=== PATIENT | male | born 1935 | race Caucasian/White ===

== ENCOUNTER 2017-04-27 13:18 | Emergency (ER) | payer MEDICARE, MEDICAID ==
[~2017-04-27] VITALS: Ht 170.2 cm; Wt 70.0 kg
[~2017-04-27 13:18] MED LIST: ACET-2178 PO; ASPI-986 PO; BUDE6HFA INH; CEFT1FRO5 IV; CHOL500010 PO; DOCU-138 PO; FINA5TAB11 PO; LACT10SO6 PO; LIP40 PO; PROT40 PO; TRAM50TA3 PO
[2017-04-27] MEDS ORDERED: SODIUM CHLORIDE 0.9% 500 ML IV ONE (14:38)
[2017-04-27] MEDS ORDERED: LORAZEPAM 2MG/ML CPJ IV STA (14:38)
[2017-04-27 15:24] LABS: BASOPHILS % 0.4 % (0.0-2.0); EOSINOPHILS % 1.4 % (0.0-5.0); HEMATOCRIT. 37.2 % (42.0-52.0); HEMOGLOBIN. 12.1 g/dL (14.0-18.0); LYMPHOCYTES % 23.5 % (20.0-50.0); MEAN CORPUSCULAR HEMOGLOBIN 27.5 pg (28.0-32.0); MEAN CORPUSCULAR VOLUME 84.5 fL (80.0-94.0); MEAN PLATELET VOLUME 8.5 fl (7.4-10.4); MONOCYTES % 8.3 % (2.0-8.0); NEUTROPHILS % 66.4 % (40.0-76.0); PLATELET 174 x1000/uL (130-400)
[2017-04-27 15:27] LABS: PROTHROMBIN TIME 10.7 sec
[2017-04-27 15:36] LABS: CARBON DIOXIDE 25 mEq/L (21-32); CHLORIDE 107 mEq/L (98-107); CREATINE KINASE 92 IU/L (39-308); ETHANOL BLOOD < 10 mg/dL; TROPONIN I < 0.02 ng/mL (0.00-0.04)
[2017-04-27 16:23] LABS: AMMONIA 17 uMol/L (<32)
[2017-04-27 19:10] VITALS: BP 120/68
[2017-04-29] MEDS ORDERED: LISI-604 PO (17:50)
== END 2017-04-27 19:11 ==
LOC: ER 13:33
DX: G93.40 Encephalopathy, unspecified (principal); F03.90 Unspecified dementia, unspecified severity, without behavioral disturbance, psychotic disturbance, mood disturbance, and anxiety; J44.9 Chronic obstructive pulmonary disease, unspecified; E78.00 Pure hypercholesterolemia, unspecified; R53.1 Weakness; Z79.82 Long term (current) use of aspirin
CPT/HCPCS: 36415; 70450; 71010; 80053; 82140; 82550; 83880; 84443; 84484; 85025; 85610; 93005; 96361; 96374; 99285; G0482; J2060; J7040; 80305; 81003

== ENCOUNTER 2018-11-02 22:14 | Emergency (ER) | payer MEDICARE, MEDICAID ==
[~2018-11-02] VITALS: Ht 165.1 cm; Wt 69.0 kg
[~2018-11-02 22:14] MED LIST changes: -ACET-2178 PO; -ASPI-986 PO; -BUDE6HFA INH; -CEFT1FRO5 IV; -CHOL500010 PO; -DOCU-138 PO; -FINA5TAB11 PO; -LACT10SO6 PO; -LIP40 PO; -PROT40 PO; +SULF1TAB48 PO; -TRAM50TA3 PO
[2018-11-02] MEDS ORDERED: SODIUM CHLORIDE 0.9% 1,000 ML IV ONE (22:49)
[2018-11-02 23:19] LABS: BASOPHILS % 0.3 % (0.0-2.0); EOSINOPHILS % 2.6 % (0.0-5.0); HEMATOCRIT. 34.6 % (42.0-52.0); HEMOGLOBIN. 11.2 g/dL (14.0-18.0); LYMPHOCYTES % 22.7 % (20.0-50.0); MEAN CORPUSCULAR HEMOGLOBIN 28.3 pg (28.0-32.0); MEAN CORPUSCULAR VOLUME 87.3 fL (80.0-94.0); MONOCYTES % 10.7 % (2.0-8.0); NEUTROPHILS % 63.7 % (40.0-76.0); PLATELET 215 x1000/uL (130-400); RED BLOOD CELL COUNT 3.96 mill/uL (4.7-6.1)
[2018-11-02 23:25] LABS: CHLORIDE 108 mEq/L (98-107)
[2018-11-03 01:24] LABS: CLARITY URINE CLOUDY (CLEAR); COLOR URINE YELLOW (YELLOW); KETONES URINE NEGATIVE (NEGATIVE); PROTEIN URINE NEGATIVE (NEGATIVE); SPECIFIC GRAVITY URINE 1.013 (1.005-1.030)
[2018-11-03 01:25] LABS: LEUKOCYTE ESTERASE URINE 3+ (NEGATIVE); NITRITE URINE POSITIVE (NEGATIVE); OCCULT BLOOD URINE TRACE (NEGATIVE); UROBILINOGEN URINE 0.2 E.U./dL (0.2-1.0)
[2018-11-03] MEDS ORDERED: CEFTRIAXONE 1 G PREMIX 50 ML IV ONE (02:00)
[2018-11-03 05:33] VITALS: BP 126/78
== END 2018-11-03 05:31 | disposition home or self-care (01) ==
LOC: ER 22:14 → EDUNIT# 22:14 → ER 11-03 05:31
DX: S01.01XA Laceration without foreign body of scalp, initial encounter (principal); N39.0 Urinary tract infection, site not specified; I10 Essential (primary) hypertension; D64.9 Anemia, unspecified; N40.0 Benign prostatic hyperplasia without lower urinary tract symptoms; W01.0XXA Fall on same level from slipping, tripping and stumbling without subsequent striking against object, initial encounter; Y93.E1 Activity, personal bathing and showering; Y92.89 Other specified places as the place of occurrence of the external cause; Y99.8 Other external cause status
CPT/HCPCS: 36415; 70450; 71045; 80053; 81003; 84484; 85025; 87077; 87086; 87186; 93005; 96365; 99284; J0696; J7030

== ENCOUNTER 2018-11-03 13:55 | Inpatient (IN) | payer MEDICARE, MEDICAID ==
[~2018-11-03] VITALS: Ht 167.6 cm; Wt 67.6 kg
[2018-11-03 12:05] VITALS: BP 105/57
[2018-11-03 14:00] VITALS: BP 100/57
[2018-11-03 16:26] VITALS: BP 116/64
[2018-11-03] MEDS ORDERED: DEXT 5%/0.45% NACL 1000ML 1,000 ML IV SCH (18:00)
[2018-11-03] MEDS: DEXT 5%/0.45% NACL 1000ML 1,000 ML IV SCH (19:34)
[2018-11-03 20:00] VITALS: BP 127/77
[2018-11-03 20:50] LABS: CLARITY URINE CLOUDY (CLEAR); COLOR URINE YELLOW (YELLOW); KETONES URINE NEGATIVE (NEGATIVE); LEUKOCYTE ESTERASE URINE 3+ (NEGATIVE); NITRITE URINE POSITIVE (NEGATIVE); OCCULT BLOOD URINE TRACE (NEGATIVE); PH URINE 6.5 (4.5-8.0); PROTEIN URINE NEGATIVE (NEGATIVE); UROBILINOGEN URINE 0.2 E.U./dL (0.2-1.0)
[2018-11-03] MEDS ORDERED: MAGNESIUM/ALUMINUM HYDROXIDE/SIMETHICONE 30ML UDC PO PRN (22:00)
[2018-11-03] MEDS ORDERED: IPRATROPIUM/ALBUTEROL 0.5-3(2.5)MG/3ML NEB INH PRN (22:00)
[2018-11-03] MEDS ORDERED: GUAIFENESIN 200MG/10ML SUGAR FREE UDC PO PRN (22:00)
[2018-11-03] MEDS ORDERED: ACETAMINOPHEN 325MG TABLET PO PRN (22:00)
[2018-11-03] MEDS ORDERED: CLONIDINE 0.1MG TABLET PO PRN (22:00)
[2018-11-03] MEDS ORDERED: ONDANSETRON HCL 4MG/2ML INJ IV PRN (22:00)
[2018-11-03 22:37] LABS: BASOPHILS % 0.4 % (0.0-2.0); EOSINOPHILS % 3.1 % (0.0-5.0); HEMATOCRIT. 34.8 % (42.0-52.0); HEMOGLOBIN. 11.3 g/dL (14.0-18.0); MEAN CORPUSCULAR VOLUME 86.3 fL (80.0-94.0); MEAN PLATELET VOLUME 7.9 fl (7.4-10.4); MONOCYTES % 11.6 % (2.0-8.0); NEUTROPHILS % 62.9 % (40.0-76.0); PLATELET 221 x1000/uL (130-400); RED BLOOD CELL COUNT 4.03 mill/uL (4.7-6.1); RED CELL DISTRIBUTION WIDTH 16.2 % (11.6-14.6)
[2018-11-03] MEDS: SODIUM CHLORIDE 0.9% INJ 3ML FLUSH IVF SCH (22:47)
[2018-11-03 22:48] LABS: CHLORIDE 109 mEq/L (98-107)
[2018-11-03] MEDS: LORAZEPAM 2MG/ML CPJ IV PRN (22:53)
[2018-11-03] MEDS: DIPHENHYDRAMINE 50MG/ML VIAL IV PRN (22:53)
[2018-11-04] VITALS: BP 133/67
[2018-11-04 04:00] VITALS: BP 106/65
[2018-11-04] MEDS: SODIUM CHLORIDE 0.9% INJ 3ML FLUSH IVF SCH ×3 (05:09→21:59)
[2018-11-04] MEDS ORDERED: LEVOFLOXACIN 500MG PREMIX 100 ML IV NR ×2 (06:00)
[2018-11-04 07:18] LABS: CHLORIDE 108 mEq/L (98-107)
[2018-11-04 07:20] LABS: BASOPHILS % 0.6 % (0.0-2.0); EOSINOPHILS % 3.2 % (0.0-5.0); HEMATOCRIT. 35.8 % (42.0-52.0); HEMOGLOBIN. 11.7 g/dL (14.0-18.0); LYMPHOCYTES % 22.9 % (20.0-50.0); MEAN CORPUSCULAR HEMOGLOBIN 28.2 pg (28.0-32.0); MEAN CORPUSCULAR VOLUME 86.7 fL (80.0-94.0); NEUTROPHILS % 62.3 % (40.0-76.0); PLATELET 222 x1000/uL (130-400); RED BLOOD CELL COUNT 4.13 mill/uL (4.7-6.1); RED CELL DISTRIBUTION WIDTH 15.9 % (11.6-14.6)
[2018-11-04] MEDS: ASPIRIN 81MG EC TABLET PO SCH (09:20)
[2018-11-04] MEDS: LISINOPRIL 2.5MG TABLET PO SCH (09:20)
[2018-11-04] MEDS: FINASTERIDE 5MG TABLET PO SCH (09:20)
[2018-11-04] MEDS: MEMANTINE HCL 5MG TABLET PO SCH (09:20)
[2018-11-04] MEDS: ENOXAPARIN 40MG/0.4ML SYR SUBCUT SCH (09:21)
[2018-11-04] MEDS: IPRATROPIUM/ALBUTEROL 0.5-3(2.5)MG/3ML NEB HHN SCH ×4 (12:03→23:49)
[2018-11-04] MEDS: DEXT 5%/0.45% NACL 1000ML 1,000 ML IV SCH (16:00)
[2018-11-04 20:00] VITALS: BP 98/50
[2018-11-04] MEDS: LORAZEPAM 2MG/ML CPJ IV PRN (23:12)
[2018-11-05] VITALS: BP 134/77
[2018-11-05] MEDS: DIPHENHYDRAMINE 50MG/ML VIAL IV PRN (02:22)
[2018-11-05 04:00] VITALS: BP 129/70
[2018-11-05] MEDS: IPRATROPIUM/ALBUTEROL 0.5-3(2.5)MG/3ML NEB HHN SCH ×5 (04:01→21:32)
[2018-11-05] MEDS: LEVOFLOXACIN 250MG PREMIX 50 ML IV SCH (05:09)
[2018-11-05] MEDS: SODIUM CHLORIDE 0.9% INJ 3ML FLUSH IVF SCH ×2 (05:10→14:50)
[2018-11-05 08:00] VITALS: BP 120/68
[2018-11-05] MEDS: MEMANTINE HCL 5MG TABLET PO SCH (08:38)
[2018-11-05] MEDS: LISINOPRIL 2.5MG TABLET PO SCH (08:38)
[2018-11-05] MEDS: ASPIRIN 81MG EC TABLET PO SCH (08:38)
[2018-11-05] MEDS: FINASTERIDE 5MG TABLET PO SCH (08:38)
[2018-11-05] MEDS: ENOXAPARIN 40MG/0.4ML SYR SUBCUT SCH (08:40)
[2018-11-05 12:00] VITALS: BP 128/98
[2018-11-05] MEDS: DEXT 5%/0.45% NACL 1000ML 1,000 ML IV SCH (12:00)
[2018-11-05 16:00] VITALS: BP 108/65
[2018-11-05 20:00] VITALS: BP 128/78
[2018-11-06] VITALS: BP 118/73
[2018-11-06] MEDS: IPRATROPIUM/ALBUTEROL 0.5-3(2.5)MG/3ML NEB HHN SCH ×5 (01:05→16:43)
[2018-11-06] MEDS: DIPHENHYDRAMINE 50MG/ML VIAL IV PRN (03:24)
[2018-11-06 04:00] VITALS: BP 146/78
[2018-11-06] MEDS: SODIUM CHLORIDE 0.9% INJ 3ML FLUSH IVF SCH ×2 (05:40→14:35)
[2018-11-06] MEDS: LEVOFLOXACIN 250MG PREMIX 50 ML IV SCH (05:40)
[2018-11-06] MEDS: LORAZEPAM 2MG/ML CPJ IV PRN (05:40)
[2018-11-06 08:00] VITALS: BP 122/76
[2018-11-06] MEDS: DEXT 5%/0.45% NACL 1000ML 1,000 ML IV SCH (08:00)
[2018-11-06] MEDS ORDERED: CEFEPIME 1,000 MG in DEXTROSE 5% WATER 50 ML IV SCH (11:00)
[2018-11-06] MEDS: ASPIRIN 81MG EC TABLET PO SCH (11:08)
[2018-11-06] MEDS: LISINOPRIL 2.5MG TABLET PO SCH (11:08)
[2018-11-06] MEDS: FINASTERIDE 5MG TABLET PO SCH (11:08)
[2018-11-06] MEDS: MEMANTINE HCL 5MG TABLET PO SCH (11:08)
[2018-11-06] MEDS: ENOXAPARIN 40MG/0.4ML SYR SUBCUT SCH (11:09)
[2018-11-06 12:00] VITALS: BP 104/64
[2018-11-06 16:00] VITALS: BP 122/75
[2018-11-06 17:05] VITALS: BP 122/75
[2018-11-06] MEDS ORDERED: NITROFURANTOIN 100MG M/M CAPSULE PO SCH (21:00)
== END 2018-11-06 20:00 | DRG 73 ==
LOC: 6EST 13:55
PROVIDERS: ADMIT Internal Medicine; ATTEND Internal Medicine
DX: G90.8 Other disorders of autonomic nervous system (principal); E43 Unspecified severe protein-calorie malnutrition; N39.0 Urinary tract infection, site not specified; S01.01XA Laceration without foreign body of scalp, initial encounter; J44.9 Chronic obstructive pulmonary disease, unspecified; E78.00 Pure hypercholesterolemia, unspecified; F03.90 Unspecified dementia, unspecified severity, without behavioral disturbance, psychotic disturbance, mood disturbance, and anxiety; I10 Essential (primary) hypertension; N40.0 Benign prostatic hyperplasia without lower urinary tract symptoms; W20.8XXA Other cause of strike by thrown, projected or falling object, initial encounter; Y93.89 Activity, other specified; Y92.89 Other specified places as the place of occurrence of the external cause; Y99.8 Other external cause status
CPT/HCPCS: 36415; 71045; 84484; 87077; 87186; 93005; 94640; 96365; 99284; J0692; J0696; J1200; J1650; J1956; J2060; J3490; J7030; J7050; J7060; J7620

== ENCOUNTER 2019-06-17 17:50 | Inpatient (IN) | payer MEDICARE, MEDICAID ==
[~2019-06-17] VITALS: Ht 195.6 cm; Wt 73.5 kg
[2019-06-17] MEDS ORDERED: SODIUM CHLORIDE 0.9% 1000ML BAG (SEPSIS BOLUS) IV ONE (18:30)
[2019-06-17] MEDS ORDERED: PIPERACILLIN/TAZ 3.375G PREMIX 50 ML IV ONE (18:30)
[2019-06-17 18:56] LABS: CHLORIDE 106 mEq/L (98-107)
[2019-06-17 18:57] LABS: INR 1.1
[2019-06-17 19:01] LABS: HEMATOCRIT. 35.7 % (42.0-52.0); HEMOGLOBIN. 11.6 g/dL (14.0-18.0); MEAN CORPUSCULAR HEMOGLOBIN 27.8 pg (28.0-32.0); MEAN CORPUSCULAR VOLUME 85.4 fL (80.0-94.0); MEAN PLATELET VOLUME 8.4 fl (7.4-10.4); PLATELET 210 x1000/uL (130-400); RED BLOOD CELL COUNT 4.18 mill/uL (4.7-6.1)
[2019-06-17 19:23] LABS: PLATELET ESTIMATE NORMAL
[2019-06-17] MEDS ORDERED: SODIUM CHLORIDE 0.9% 1,000 ML IV ONE (19:54)
[2019-06-17 20:12] LABS: CLARITY URINE CLOUDY (CLEAR); COLOR URINE YELLOW (YELLOW); KETONES URINE NEGATIVE (NEGATIVE); LEUKOCYTE ESTERASE URINE 3+ (NEGATIVE); NITRITE URINE POSITIVE (NEGATIVE); OCCULT BLOOD URINE TRACE (NEGATIVE); PROTEIN URINE NEGATIVE (NEGATIVE); SPECIFIC GRAVITY URINE 1.011 (1.005-1.030); UROBILINOGEN URINE 0.2 E.U./dL (0.2-1.0)
[2019-06-17] MEDS ORDERED: ACETAMINOPHEN 325MG TABLET PO PRN (20:30)
[2019-06-17] MEDS ORDERED: IPRATROPIUM/ALBUTEROL 0.5-3(2.5)MG/3ML NEB INH PRN (20:30)
[2019-06-17] MEDS ORDERED: ONDANSETRON HCL 4MG/2ML INJ IV PRN (20:30)
[2019-06-17] MEDS ORDERED: PIPERACILLIN/TAZ 3.375G PREMIX 50 ML IV SCH (20:30)
[2019-06-17] MEDS ORDERED: ENOXAPARIN 40MG/0.4ML SYR SUBCUT SCH (20:30)
[2019-06-17] MEDS ORDERED: DEXT 5%/0.45% NACL 1000ML 1,000 ML IV SCH (22:47)
[2019-06-18 05:15] VITALS: BP 100/52
[2019-06-18] MEDS ORDERED: PIPERACILLIN/TAZ 3.375G PREMIX 50 ML IV NR (05:15)
[2019-06-18] MEDS ORDERED: PIPERACILLIN/TAZ 3.375G PREMIX 50 ML IV SCH (05:15)
[2019-06-18 06:00] VITALS: BP 100/52
[2019-06-18] MEDS ORDERED: VANCOMYCIN 1 G PREMIX 200 ML IV NR ×2 (06:00→09:00)
[2019-06-18 08:00] VITALS: BP 110/52
[2019-06-18] MEDS: PIPERACILLIN/TAZOBACTAM 3.375 G in DEXT 5% WATER 100 ML IV SCH ×3 (08:51→21:15)
[2019-06-18] MEDS ORDERED: IPRATROPIUM/ALBUTEROL 0.5-3(2.5)MG/3ML NEB HHN PRN (09:15)
[2019-06-18] MEDS: ENOXAPARIN 40MG/0.4ML SYR SUBCUT SCH (09:32)
[2019-06-18 12:00] VITALS: BP 110/54
[2019-06-18 13:12] LABS: BASOPHILS % 0.2 % (0.0-2.0); EOSINOPHILS % 0.6 % (0.0-5.0); HEMATOCRIT. 34.7 % (42.0-52.0); HEMOGLOBIN. 11.2 g/dL (14.0-18.0); LYMPHOCYTES % 9.4 % (20.0-50.0); MEAN CORPUSCULAR HEMOGLOBIN 27.6 pg (28.0-32.0); MEAN CORPUSCULAR VOLUME 85.7 fL (80.0-94.0); MEAN PLATELET VOLUME 8.2 fl (7.4-10.4); MONOCYTES % 5.2 % (2.0-8.0); NEUTROPHILS % 84.6 % (40.0-76.0); PLATELET 173 x1000/uL (130-400); RED BLOOD CELL COUNT 4.05 mill/uL (4.7-6.1); RED CELL DISTRIBUTION WIDTH 16.2 % (11.6-14.6)
[2019-06-18 13:32] LABS: CHLORIDE 111 mEq/L (98-107)
[2019-06-18] MEDS: FINASTERIDE 5MG TABLET PO SCH (14:17)
[2019-06-18] MEDS: ASPIRIN 81MG TABLET PO SCH (14:17)
[2019-06-18] MEDS: IPRATROPIUM/ALBUTEROL 0.5-3(2.5)MG/3ML NEB HHN SCH ×2 (14:54→20:33)
[2019-06-18 16:00] VITALS: BP 113/59
[2019-06-18] MEDS: DOCUSATE SODIUM 100MG CAPSULE PO SCH (17:00)
[2019-06-18 20:00] VITALS: BP 114/64
[2019-06-18] MEDS: BUDESONIDE 0.5MG/2ML NEB HHN SCH (20:36)
[2019-06-18] MEDS: VANCOMYCIN 750 MG PREMIX 150 ML IV SCH (21:15)
[2019-06-18] MEDS: DEXT 5%/0.45% NACL 1000ML 1,000 ML IV SCH (21:16)
[2019-06-18] MEDS: GUAIFENESIN 600MG ER TABLET PO SCH (21:29)
[2019-06-19] VITALS: BP 113/58
[2019-06-19] MEDS ORDERED: VANCOMYCIN 1 G PREMIX 200 ML IV SCH
[2019-06-19] MEDS: IPRATROPIUM/ALBUTEROL 0.5-3(2.5)MG/3ML NEB HHN SCH ×4 (01:35→21:48)
[2019-06-19] MEDS: PIPERACILLIN/TAZOBACTAM 3.375 G in DEXT 5% WATER 100 ML IV SCH ×4 (02:00→20:29)
[2019-06-19 04:00] VITALS: BP 124/59
[2019-06-19 05:48] LABS: BASOPHILS % 0.2 % (0.0-2.0); EOSINOPHILS % 0.9 % (0.0-5.0); HEMATOCRIT. 35.3 % (42.0-52.0); HEMOGLOBIN. 11.8 g/dL (14.0-18.0); LYMPHOCYTES % 11.6 % (20.0-50.0); MEAN CORPUSCULAR HEMOGLOBIN 28.6 pg (28.0-32.0); MEAN CORPUSCULAR VOLUME 85.2 fL (80.0-94.0); MEAN PLATELET VOLUME 8.7 fl (7.4-10.4); MONOCYTES % 7.1 % (2.0-8.0); NEUTROPHILS % 80.2 % (40.0-76.0); PLATELET 203 x1000/uL (130-400); RED BLOOD CELL COUNT 4.14 mill/uL (4.7-6.1); RED CELL DISTRIBUTION WIDTH 16.4 % (11.6-14.6)
[2019-06-19 05:49] LABS: CHLORIDE 109 mEq/L (98-107)
[2019-06-19] MEDS: DEXT 5%/0.45% NACL 1000ML 1,000 ML IV SCH (06:41)
[2019-06-19] MEDS ORDERED: LEVOTHYROXINE SODIUM 88MCG TABLET PO SCH (07:10)
[2019-06-19] MEDS: BUDESONIDE 0.5MG/2ML NEB HHN SCH ×2 (07:42→21:48)
[2019-06-19 08:00] VITALS: BP 110/70
[2019-06-19] MEDS: FINASTERIDE 5MG TABLET PO SCH (08:31)
[2019-06-19] MEDS: ASPIRIN 81MG TABLET PO SCH (08:31)
[2019-06-19] MEDS: GUAIFENESIN 600MG ER TABLET PO SCH ×2 (08:31→21:27)
[2019-06-19] MEDS: DOCUSATE SODIUM 100MG CAPSULE PO SCH ×2 (08:31→16:47)
[2019-06-19] MEDS: ENOXAPARIN 40MG/0.4ML SYR SUBCUT SCH (08:32)
[2019-06-19] MEDS ORDERED: FLUTICASONE/VILANTEROL 200-25 BLST.W.DEV ORI SCH (09:00)
[2019-06-19] MEDS ORDERED: AMIODARONE HCL 200 MG TABLET PO SCH (09:00)
[2019-06-19] MEDS: VANCOMYCIN 750 MG PREMIX 150 ML IV SCH ×2 (09:00→21:26)
[2019-06-19] MEDS ORDERED: TAMSULOSIN HCL 0.4MG SR CAPSULE PO SCH (09:00)
[2019-06-19 12:00] VITALS: BP 120/69
[2019-06-19 16:00] VITALS: BP 142/62
[2019-06-19 20:00] VITALS: BP 148/85
[2019-06-20] VITALS: BP 131/57
[2019-06-20] MEDS: IPRATROPIUM/ALBUTEROL 0.5-3(2.5)MG/3ML NEB HHN SCH ×4 (02:06→20:38)
[2019-06-20 04:00] VITALS: BP 126/69
[2019-06-20] MEDS: PIPERACILLIN/TAZOBACTAM 3.375 G in DEXT 5% WATER 100 ML IV SCH ×4 (04:16→20:04)
[2019-06-20 06:25] LABS: CHLORIDE 109 mEq/L (98-107)
[2019-06-20 06:29] LABS: BASOPHILS % 0.2 % (0.0-2.0); HEMATOCRIT. 36.8 % (42.0-52.0); LYMPHOCYTES % 12.5 % (20.0-50.0); MEAN CORPUSCULAR HEMOGLOBIN 28.1 pg (28.0-32.0); MEAN CORPUSCULAR VOLUME 85.9 fL (80.0-94.0); MEAN PLATELET VOLUME 8.2 fl (7.4-10.4); MONOCYTES % 8.4 % (2.0-8.0); NEUTROPHILS % 77.9 % (40.0-76.0); PLATELET 211 x1000/uL (130-400); RED BLOOD CELL COUNT 4.28 mill/uL (4.7-6.1); RED CELL DISTRIBUTION WIDTH 16.1 % (11.6-14.6)
[2019-06-20 08:17] VITALS: BP 142/64
[2019-06-20] MEDS: VANCOMYCIN 750 MG PREMIX 150 ML IV SCH ×2 (09:35→20:57)
[2019-06-20] MEDS: DOCUSATE SODIUM 100MG CAPSULE PO SCH (09:36)
[2019-06-20] MEDS: FINASTERIDE 5MG TABLET PO SCH (09:36)
[2019-06-20] MEDS: GUAIFENESIN 600MG ER TABLET PO SCH ×3 (09:36→21:00)
[2019-06-20] MEDS: ENOXAPARIN 40MG/0.4ML SYR SUBCUT SCH (09:36)
[2019-06-20] MEDS: ASPIRIN 81MG TABLET PO SCH (09:36)
[2019-06-20] MEDS: BUDESONIDE 0.5MG/2ML NEB HHN SCH ×2 (09:45→20:38)
[2019-06-20 12:00] VITALS: BP 126/63
[2019-06-20 16:00] VITALS: BP 150/72
[2019-06-20] MEDS: DOCUSATE SODIUM SUGAR FREE 100MG/10ML UDC PO SCH (17:47)
[2019-06-20 20:00] VITALS: BP 173/87
[2019-06-21] VITALS: BP 139/60
[2019-06-21] MEDS: PIPERACILLIN/TAZOBACTAM 3.375 G in DEXT 5% WATER 100 ML IV SCH ×2 (01:50→08:37)
[2019-06-21] MEDS: IPRATROPIUM/ALBUTEROL 0.5-3(2.5)MG/3ML NEB HHN SCH ×4 (01:56→21:16)
[2019-06-21 04:00] VITALS: BP 155/89
[2019-06-21 06:44] LABS: BASOPHILS % 0.4 % (0.0-2.0); EOSINOPHILS % 3.3 % (0.0-5.0); HEMATOCRIT. 36.4 % (42.0-52.0); HEMOGLOBIN. 12.4 g/dL (14.0-18.0); LYMPHOCYTES % 14.2 % (20.0-50.0); MEAN CORPUSCULAR HEMOGLOBIN 29.1 pg (28.0-32.0); MEAN CORPUSCULAR VOLUME 85.1 fL (80.0-94.0); MEAN PLATELET VOLUME 8.1 fl (7.4-10.4); MONOCYTES % 9.6 % (2.0-8.0); NEUTROPHILS % 72.5 % (40.0-76.0); PLATELET 246 x1000/uL (130-400); RED BLOOD CELL COUNT 4.27 mill/uL (4.7-6.1); RED CELL DISTRIBUTION WIDTH 16.2 % (11.6-14.6)
[2019-06-21 06:50] LABS: CHLORIDE 108 mEq/L (98-107)
[2019-06-21] MEDS: BUDESONIDE 0.5MG/2ML NEB HHN SCH ×2 (07:20→21:16)
[2019-06-21 08:21] VITALS: BP 128/59
[2019-06-21] MEDS: GUAIFENESIN 600MG ER TABLET PO SCH (09:00)
[2019-06-21] MEDS: ASPIRIN 81MG TABLET PO SCH (09:28)
[2019-06-21] MEDS: VANCOMYCIN 750 MG PREMIX 150 ML IV SCH (09:28)
[2019-06-21] MEDS: FINASTERIDE 5MG TABLET PO SCH (09:28)
[2019-06-21] MEDS: DOCUSATE SODIUM SUGAR FREE 100MG/10ML UDC PO SCH (09:28)
[2019-06-21] MEDS: ENOXAPARIN 40MG/0.4ML SYR SUBCUT SCH (09:29)
[2019-06-21 12:00] VITALS: BP 99/59
[2019-06-21 18:17] VITALS: BP_SYST 125; BP_SYST 94; BP_DIAS 57; BP_DIAS 71
[2019-06-21] MEDS ORDERED: BUDESONIDE 0.5MG/2ML NEB ONE (21:09)
== END 2019-06-21 21:25 | DRG 871 ==
LOC: ER 17:50 → 8WST 20:19 → EDBEDREQ 20:22 → EDBEDREQTM 20:22 → EDBEDREQDT 06-18 04:30 → EDBEDREQSVC 06-18 04:30 → ENRESERV 06-18 04:41 → ER 06-18 05:11
PROVIDERS: ADMIT Internal Medicine; ATTEND Internal Medicine
DX: A41.51 Sepsis due to Escherichia coli [E. coli] (principal); J69.0 Pneumonitis due to inhalation of food and vomit; J96.00 Acute respiratory failure, unspecified whether with hypoxia or hypercapnia; N39.0 Urinary tract infection, site not specified; N17.9 Acute kidney failure, unspecified; D64.9 Anemia, unspecified; E86.0 Dehydration; E78.5 Hyperlipidemia, unspecified; F03.90 Unspecified dementia, unspecified severity, without behavioral disturbance, psychotic disturbance, mood disturbance, and anxiety; I10 Essential (primary) hypertension; Z96.641 Presence of right artificial hip joint; I25.10 Atherosclerotic heart disease of native coronary artery without angina pectoris; J44.9 Chronic obstructive pulmonary disease, unspecified; M19.90 Unspecified osteoarthritis, unspecified site; N40.0 Benign prostatic hyperplasia without lower urinary tract symptoms; Z79.82 Long term (current) use of aspirin; Z79.899 Other long term (current) drug therapy; Z86.73 Personal history of transient ischemic attack (TIA), and cerebral infarction without residual deficits; Z87.891 Personal history of nicotine dependence
CPT/HCPCS: 36415; 71045; 80048; 80202; 81003; 83605; 83880; 84145; 84484; 87077; 87186; 92610; 93005; 93306; 93970; 94640; 97162; 99291; G0378; J1650; J2405; J2543; J3370; J7030; J7060; J7620; J7626